=== PATIENT | male | born 2000 | race Caucasian/White ===

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

== ENCOUNTER 2019-01-23 19:14 | Emergency (ER) | payer OTHER ==
[2019-01-23] MEDS ORDERED: HYDROcodone/Acetaminophen 7.5/325 mg Tablet ONE (19:35)
--- NOTE | 2019-01-23 19:47 | RAD ---
Exam: XR Ankle Lt 3 View STANDARD HISTORY: Injury to ankle while playing basketball. Unable to bear weight. COMPARISON: None FINDINGS: There are small round appearing lucencies seen overlying the medial aspect of the distal tibia of unc ertain etiology but have an overall nonaggressive appearance. No acute fracture, dislocation, or other acute osseous abnormality is identified. Prominent subcutaneous soft tissue swelling is seen at the lateral aspect of the left ankle as well a s anteriorly. IMPRESSION: Prominent subcutaneous soft tissue at the lateral and anterior aspect left ankle, but no fracture is appreciated.
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
== END 2019-01-23 20:47 | disposition home or self-care (01) ==
LOC: ERS 19:14
DX: S93.402A Sprain of unspecified ligament of left ankle, initial encounter (principal); F32.9 Major depressive disorder, single episode, unspecified; F17.220 Nicotine dependence, chewing tobacco, uncomplicated; X50.1XXA Overexertion from prolonged static or awkward postures, initial encounter; Y93.67 Activity, basketball

== ENCOUNTER 2019-11-22 23:23 | Emergency (ER) | payer OTHER ==
[2019-11-23] MEDS ORDERED: Bacitracin 1 PK ONE (01:20)
[2019-11-23] MEDS ORDERED: Adacel (T-DAP) 0.5 ML SYRINGE ONE (01:28)
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
== END 2019-11-23 01:49 | disposition home or self-care (01) ==
LOC: ERS 23:23
DX: S01.511A Laceration without foreign body of lip, initial encounter (principal); S00.83XA Contusion of other part of head, initial encounter; S80.12XA Contusion of left lower leg, initial encounter; S80.11XA Contusion of right lower leg, initial encounter; S50.12XA Contusion of left forearm, initial encounter; S50.11XA Contusion of right forearm, initial encounter; F32.9 Major depressive disorder, single episode, unspecified; F17.220 Nicotine dependence, chewing tobacco, uncomplicated; Z23 Encounter for immunization; Z79.899 Other long term (current) drug therapy; Y04.0XXA Assault by unarmed brawl or fight, initial encounter
CPT/HCPCS: 12013; 70450; 70486; 72125; 90471; 90715